=== PATIENT | female | born 1970 | race American Indian/Alaskan Native ===

== ENCOUNTER 2019-06-14 00:11 | Emergency (ER) | payer OTHER ==
[2019-06-14] MEDS ORDERED: IPRATROPIUM/ALBUTEROL SULFATE 3 ML AMPUL.NEB IH ONE (00:25)
--- NOTE | 2019-06-14 01:01 | XRay Report ---
CHEST 2 VIEWS INDICATION: cough and wheezing. COMPARISON: none FINDINGS: Support devices: None. Heart: Within normal limits. Lungs: No acute air space or interstitial disease. Pleura: No significant pleural effusion. No pneumothorax. Additional findings: None. IMPRESSION: 1. No acute findings. Signer Name: Tanner Lobo MD Signed: 06/14/2019 12:56 AM Workstation Name: [email or web address]
[2019-06-14 02:42] VITALS: BP 146/99
== END 2019-06-14 03:42 | disposition left against medical advice (07) ==
LOC: ED 00:11
DX: R05 Cough (principal); R06.02 Shortness of breath; Z53.21 Procedure and treatment not carried out due to patient leaving prior to being seen by health care provider
CPT/HCPCS: 71046